=== PATIENT | male | born 1975 | race Caucasian/White ===

== ENCOUNTER 2021-04-25 16:09 | Emergency (ER) | payer OTHER ==
[~2021-04-25] VITALS: Ht 182.9 cm; Wt 136.0 kg
[~2021-04-25 16:09] MED LIST: HYDR-3164 PO; LOPE2TAB56 PO
[2021-04-25] MEDS ORDERED: DIPHTH,PERTUSS(ACELL),TET TOX 0.5 ML DISP.SYRIN. VAX IM ONE (17:00)
[2021-04-25] MEDS ORDERED: HYDROcodone/APAP 5/325MG 1 TAB TABLET PO ONE (17:00)
--- NOTE | 2021-04-25 17:21 | RAD ---
Exam Date: 04/25/2021 5:08 PM XR HAND_LEFT 3 VIEWS Indication: Reason: puncture wound ran pipe through it / Spl. Instructions: / History: . FINDINGS/ IMPRESSION: No acute fracture or dislocation. Alignment and joint spaces are maintained. The soft tissues are w ithin normal limits. Electronically signed by: Vignesh Marino MD (04/25/2021 5:19 PM) [facility]
--- NOTE | 2021-04-25 17:52 | PHYS DOC ---
Past Medical History Past Medical History: Depression, GERD (HODA JI SILK SCREEN ETCHER) Past Surgical History: Other Additional Past Surgical Histo: ligament/tendon repair Lt hand, (HODA JI SILK SCREEN ETCHER) Smoking Status: Never Smoker Alcohol Use: None Drug Use: None (HODA JI APRN) General Adult EDM: Chief Complaint: HAND PROBLEM HPI: HPI: Patient is a 45 year old male who presents to the ED today complaining of a puncture wound to the left hand, he is right-handed. He states he was installing a plastic shelf an upright shelving pipe accidentally went into his left hand not going through and through. Patient states he has some intermittent numbness to the left index finger to ring finger. Patient states he can still feel the fingers and move them with no difficulties. (HODA JI APRN) Review of Systems: Review of Systems: Constitutional: Denies fever or chills. [] Musculoskeletal: Denies back pain or joint pain. [] Integument: Reports laceration to the left hand Neurologic: Denies headache, focal weakness or sensory changes. [] Psychiatric: Denies depression or anxiety. [] (HODA JI SILK SCREEN ETCHER) Heart Score: C/O Chest Pain: N/A Risk Factors: Risk Factors: DM, Current or recent (<one month) smoker, HTN, HLP, family history of CAD, obesity. Risk Scores: Score 0 - 3: 2.5% MACE over next 6 weeks - Discharge Home Score 4 - 6: 20.3% MACE over next 6 weeks - Admit for Clinical Observation Score 7 - 10: 72.7% MACE over next 6 weeks - Early Invasive Strategies (HODA JI SILK SCREEN ETCHER) Current Medications: Current Medications Medications (Trade) Dose Ordered Sig/Marifer Start Time Stop Time Status Last Admin Dose Admin Acetaminophen/ Hydrocodone Bitart (Lortab 5/325) 1 tab 1X ONCE 04/25/21 17:00 04/25/21 17:01 DC 04/25/21 17:11 1 TAB Diphtheria/ Tetanus/Acell Pertussis (Boostrix) 0.5 ml ONCE ONCE 04/25/21 17:00 04/25/21 17:01 DC Gelatin (Gelfoam Size 12-7mm) 1 each 1X ONCE 04/25/21 18:00 04/25/21 18:01 Neomycin/ Polymyxin/ Bacitracin (Triple Antibiotic Ointment) 1 pkt 1X ONCE 04/25/21 18:00 04/25/21 18:01 (DEDRALEChavezHODA Clover OSORIO) Allergies: Allergies: Allergies Coded Allergies Type Severity Reaction Last Updated Verified No Known Drug Allergies 04/25/21 No (MARGYHODA Clover OSORIO) Physical Exam: PE: Constitutional: Well developed, well nourished, no acute distress, non-toxic appearance. [] Skin: Palm of the left hand with a circular laceration approximately 2 x 2 cm. There is slight bleeding from the laceration site, pressure was applied to the area. There is no obvious tendon involvement. Full range of motion to the left hand, left fingers. Adequate radial, median, ulnar sensation to the left fingers. +2 left radial pulse. Cap refill less than 2 seconds in left fingers Back: No tenderness, no CVA tenderness. [] Extremities: No tenderness, no cyanosis, no clubbing, ROM intact, no edema. [] Neurologic: Alert and oriented X 3, normal motor function, normal sensory function, no focal deficits noted. [] Psychologic: Affect normal, judgement normal, mood normal. [] (MARGYHODA Clover OSORIO) Current Patient Data: Vital Signs: Vital Signs Date Time Temp Pulse Resp B/P (MAP) Pulse Ox O2 Delivery O2 Flow Rate FiO2 04/25/21 17:12 86 20 154/95 (114) 97 Room Air 04/25/21 16:31 98.8 98.8 (HODA JI APRN) EKG: EKG: [] (HODA JI APRN) Radiology/Procedures: Radiology/Procedures: []PROCEDURE: HAND LEFT 3V Exam Date: 04/25/2021 5:08 PM XR HAND_LEFT 3 VIEWS Indication: Reason: puncture wound ran pipe through it / Spl. Instructions: / History: . FINDINGS/ IMPRESSION: No acute fracture or dislocation. Alignment and joint spaces are maintained. The soft tissues are within normal limits. Electronically signed by: Latisha Marino MD (04/25/2021 5:19 PM) [facility] DICTATED and SIGNED BY: LATISHA MARINO MD DATE: 04/25/21 [id number] (HODA JI APRN) Course & Med Decision Making: Course & Med Decision Making Pertinent Labs and Imaging studies reviewed. (See chart for details) This is a 45-year-old male patient presenting to the ED today with left hand laceration that occurred after a pipe accidentally punctured his left hand while installing a plastic shelf. Patient is right-handed. Left hand x-rays are negative for any acute findings. Laceration was cleaned. Neosporin applied to the area. Discharged on cephalexin. Tetanus is up-to-date instructed to follow-up with a hand surgeon of his own choice. Provided return precautions. (HODA JI APRN) Dragon Disclaimer: Dragon Disclaimer: This electronic medical record was generated, in whole or in part, using a voice recognition dictation system. (HODA JI APRN) Departure Departure Impression: Primary Impression: Puncture wound of left hand Qualified Codes: S61.432A - Puncture wound without foreign body of left hand, initial encounter Disposition: HOME / SELF CARE / HOMELESS Condition: STABLE Referrals: CATRACHITO ARREDONDO MD (PCP) Follow-up with your primary care doctor as well as a hand surgeon of your choice Patient Instructions: Puncture Wound Additional Instructions: You were evaluated in the emergency room for left hand injury. Your left hand x-rays are negative for any acute findings. You can remove the dressing on your left hand in 24 hours. If its not draining or bleeding you can leave it open to air unless you are at work. Please apply Neosporin to the area twice a day for 7 days. Take the prescribed antibiotics until completed. Please follow-up with a hand surgeon of your choice in the next 1 to 2 weeks. Please come back to the ED at any point symptoms worsen a wound condition worsens Scripts Hydrocodone Bit/Acetaminophen (HYDROCODONE-APAP 5-325 ) 1 Tab Tablet 1 TAB PO PRN Q6HRS PRN for PAIN, #10 TAB 0 Refills Prov: HODA JI APRN 04/25/21 Cephalexin (CEPHALEXIN) 500 Mg Tablet 1 TAB PO TID, #30 TAB Prov: HODA JI APRN 04/25/21 Attending Signature Attending Signature I have reviewed the PA/DRIP PUMPER's note and plan of care. I was available for consultation as needed during the patient's visit in the emergency department. I agree with the clinical impression, plan, and disposition. (AMAURY KLEIN DO) HODA JI APRN Apr 25, 2021 17:52 AMAURY KLEIN DO Apr 25, 2021 23:25
[2021-04-25] MEDS ORDERED: NEOMY/BACITR/POLYMYXIN OINT PACKET. TP ONE (18:00)
[2021-04-25] MEDS ORDERED: GELATIN SPONGE SIZE 12-7MM SPONGE. TP ONE (18:00)
[2021-04-25] MEDS ORDERED: HYDR-2761 PO (18:04)
[2021-04-25] MEDS ORDERED: CEPH500T PO (18:04)
[2021-04-25 18:26] VITALS: BP 144/71
== END 2021-04-25 19:01 | disposition home or self-care (01) ==
LOC: ER 16:09
DX: S61.432A Puncture wound without foreign body of left hand, initial encounter (principal); K21.9 Gastro-esophageal reflux disease without esophagitis; Y28.8XXA Contact with other sharp object, undetermined intent, initial encounter; Y93.89 Activity, other specified; Y92.89 Other specified places as the place of occurrence of the external cause; Y99.8 Other external cause status
CPT/HCPCS: 73130; 99284